=== PATIENT | female | born 1990 | race Caucasian/White ===

== ENCOUNTER 2024-12-16 19:36 | Emergency (ER) | payer MEDICAID, OTHER ==
[2024-12-16] MEDS: Lidocaine 1% with EPINEPHrine 1:100,000 20 ML MDV INFILT ONE (20:20)
== END 2024-12-16 20:40 | disposition home or self-care (01) ==
LOC: VM.ED 19:36
DX: L02.214 Cutaneous abscess of groin (principal); L73.1 Pseudofolliculitis barbae; Z88.0 Allergy status to penicillin; Z88.1 Allergy status to other antibiotic agents; Z79.899 Other long term (current) drug therapy
CPT/HCPCS: 10060; 10160; 99283; 99284; J2004